=== PATIENT | male | born 1970 | race Caucasian/White ===

== ENCOUNTER 2017-03-14 11:18 | Emergency (ER) | payer OTHER ==
[2015-01-16 08:23] VITALS: BMI 27.2
[~2017-03-14 11:18] MED LIST: HYDROCODONE-APA1 TAB PO
[2017-03-14 11:47] LABS: BASOPHILS 0.2 % (0-2); EOSINOPHILS 1.1 % (0-7); HEMATOCRIT 38.8 % (42.0-54.0); HEMOGLOBIN 13.6 g/dL (13.5-17.5); IMMATURE GRANULOCYTES 0.2 % (0-5); LYMPHOCYTES 16.8 % (15-50); MCHC 35.1 g/dL (31.0-37.0); MCV 91.3 fL (80.0-100.0); MEAN PLATELET VOLUME 9.8 fL (7.4-10.4); MONOCYTES 8.6 % (2-11); NEUTROPHILS 73.1 % (40-80); PLATELET COUNT 205 10x3/uL (130-400); RBC 4.25 10x6/uL (4.20-6.10); RDW 12.9 % (11.5-14.5); WBC 8.9 10x3/uL (4.8-10.8)
[2017-03-14 12:02] LABS: ALBUMIN 3.3 g/dL (3.4-5.0); ANION GAP 17.8 mmol/L (8-16); BILIRUBIN - TOTAL 0.56 mg/dL (0.2-1.3); CALCIUM 8.4 mg/dL (8.5-10.1); CARBON DIOXIDE 22.3 mmol/L (21.0-32.0); CREATININE - SERUM 6.8 mg/dL (0.6-1.3); POTASSIUM - SERUM 4.1 mmol/L (3.5-5.1); PROTEIN - SERUM 6.6 g/dL (6.4-8.2)
[2017-03-14 12:03] LABS: APPEARANCE CLEAR (CLEAR); COLOR YELLOW (YELLOW); SPECIFIC GRAVITY 1.015 (1.005-1.020)
[2017-03-14 12:04] LABS: BACTERIA FEW /hpf (NONE SEEN); BILIRUBIN NEGATIVE (NEGATIVE); EPITHELIAL CELLS 0-5 /hpf (0-5); GLUCOSE NEGATIVE (NEGATIVE); KETONE NEGATIVE (NEGATIVE); LEUKOCYTE ESTERASE NEGATIVE (NEGATIVE); NITRITE NEGATIVE (NEGATIVE); PROTEIN NEGATIVE (NEGATIVE); RED CELLS - URINE 0-5 /hpf (0-5); UROBILINOGEN NORMAL (NORMAL); WHITE CELLS - URINE RARE /hpf (0-5)
== END 2017-03-14 14:48 | disposition home or self-care (01) ==
LOC: D.ER 11:18
PROVIDERS: Emergency Medicine
DX: M54.5 Low back pain (principal); K76.9 Liver disease, unspecified; N18.6 End stage renal disease; F17.200 Nicotine dependence, unspecified, uncomplicated

== ENCOUNTER 2017-03-15 16:56 | Inpatient (IN) | payer OTHER ==
[~2017-03-15] VITALS: Ht 182.9 cm; Wt 89.1 kg
--- NOTE | 2017-03-15 17:20 | NUR ---
PATIENT ARRIVED TO UNIT VIA WHEELCHAIR FROM ADMISSIONS AT 1710. PATIENT ADMITTED TO ROOM 2130. PATIENT ALERT/ORIENTED. ACCOMPANIED BY HIS MOTHER. NO IV ACCESS. DIRECT ADMIT FROM 'S OFFICE. RESP EVEN AND UNLABORED. URINAL PROVIDED. CALL LIGHT WITHIN REACH. NO DISTRESS.
--- NOTE | 2017-03-15 17:40 | NUR ---
URINE SAMPLE SUBMITTED TO LAB.
[2017-03-15 18:04] VITALS: BP 133/76; BMI 28.0
[2017-03-15 18:38] LABS: ALBUMIN 3.1 g/dL (3.4-5.0); ALKALINE PHOSPHATASE 60 U/L (46-116); ALT (SGPT) 29 U/L (10-68); BILIRUBIN - TOTAL 0.36 mg/dL (0.2-1.3); CALC OSMOLALITY 298 mosm/kg (275-300); CALCIUM 7.9 mg/dL (8.5-10.1); CARBON DIOXIDE 24.7 mmol/L (21.0-32.0); CHLORIDE - SERUM 105 mmol/L (98-107); GLUCOSE 109 mg/dL (74-106); POTASSIUM - SERUM 4.5 mmol/L (3.5-5.1); SODIUM 140 mmol/L (136-145); UREA NITROGEN 66 mg/dL (7-18); eGFR NON AFRICAN AMERICAN 9 mL/min (90-120)
--- NOTE | 2017-03-15 18:38 | NUR ---
22 GAUGE IV PLACED TO LEFT HAND X 1 STICK. GOOD BLOOD RETURN, EASY FLUSH. TAPED, DATED, AND SECURED. TOLERATED IV PLACEMENT WELL. NO DISTRESS.
[2017-03-15 18:57] LABS: CREATINE KINASE 517 UL (21-232); URIC ACID 10.1 mg/dL (2.6-7.2)
[2017-03-15 18:58] LABS: CKMB 1.1 U/L (0.0-3.6)
--- NOTE | 2017-03-15 20:00 | NUR ---
PT RESTING IN BED WITH NO DISTRESS. SALINE LOCK TO LEFT HAND, NONLABORED RESPIRATIONS ON ROOM AIR. PT WITH FLAT AFFECT, MINIMAL INTERACTION. SEE ASSESSMENT, MONITOR AND CPOC.
[2017-03-15 21:02] VITALS: BP 122/73
--- NOTE | 2017-03-15 22:30 | NUR ---
HS MEDS GIVEN. CLARIFIED WITH PHARMACY THE NEED FOR ORDERED IVF PER DR DUNN. IVF HAVE NOW BEEN DELIVERED TO FLOOR AND INFUSION OF D5.45NS +2AMPS BICARB AT 125ML/HR NOW INFUSING. ENCOURAGED PT TO VERBALIZE ANY NEEDS AND TALK ABOUT HIS FEELINGS. WILL MONITOR AND BE SUPPORTIVE.
[2017-03-16 04:21] VITALS: BP 119/68
--- NOTE | 2017-03-16 04:37 | NUR ---
PT AWAKE. C/O SLIGHT HEADACHE. TYLENOL PROVIDED. PT ALSO WANTING SOMETHING TO DRINK. FLUIDS PROVIDED. SR PER TELEMETRY. CALL LIGHT IN REACH. CPOC.
[2017-03-16 06:51] LABS: BASOPHILS 0.3 % (0-2); EOSINOPHILS 2.8 % (0-7); HEMATOCRIT 34.9 % (42.0-54.0); HEMOGLOBIN 12.3 g/dL (13.5-17.5); IMMATURE GRANULOCYTES 0.1 % (0-5); LYMPHOCYTES 22.3 % (15-50); MCH 32.4 pg (26.0-34.0); MCHC 35.2 g/dL (31.0-37.0); MCV 91.8 fL (80.0-100.0); MONOCYTES 6.1 % (2-11); NEUTROPHILS 68.4 % (40-80); PLATELET COUNT 224 10x3/uL (130-400); RDW 12.9 % (11.5-14.5); WBC 6.7 10x3/uL (4.8-10.8)
[2017-03-16 07:32] LABS: ALBUMIN 2.8 g/dL (3.4-5.0); ALKALINE PHOSPHATASE 50 U/L (46-116); ALT (SGPT) 23 U/L (10-68); CALC OSMOLALITY 301 mosm/kg (275-300); CALCIUM 7.8 mg/dL (8.5-10.1); CARBON DIOXIDE 23.7 mmol/L (21.0-32.0); CHLORIDE - SERUM 107 mmol/L (98-107); CREATINE KINASE 420 UL (21-232); CREATININE - SERUM 6.6 mg/dL (0.6-1.3); GLUCOSE 116 mg/dL (74-106); POTASSIUM - SERUM 4.6 mmol/L (3.5-5.1); PROTEIN - SERUM 5.8 g/dL (6.4-8.2); SODIUM 141 mmol/L (136-145); UREA NITROGEN 68 mg/dL (7-18); eGFR NON AFRICAN AMERICAN 10 mL/min (90-120)
[2017-03-16 07:37] LABS: CKMB 0.6 U/L (0.0-3.6)
[2017-03-16 08:00] VITALS: BP 110/80
--- NOTE | 2017-03-16 08:15 | NUR ---
PT RESTING IN BED WITH EYES OPEN CALL LIGHT IN REACH NO PROBLEMS WILL MONITER
--- NOTE | 2017-03-16 08:23 | NUR ---
RESTS IN BED WITH CALL LIGHT IN REACH. NAEEM NEEDS AT THIS TIME. DAVID ANDERSON.
[2017-03-16 12:43] VITALS: BP 111/73
[2017-03-16 14:05] VITALS: Ht 182.9 cm; Wt 89.1 kg
[2017-03-16 16:00] VITALS: BP 131/45
--- NOTE | 2017-03-16 19:47 | NUR ---
PT LYING IN BED WITH TV ON, JUST GOT BACK FROM WALK AROUND UNIT, REQUESTED LARGE CUP OF CRANBERRY JUICE, NO SIGNS OF DISTRESS, HAD VISITOR COME IN TO VISIT. LEFT PT IN BED AT LOW POSITION AND CALL LIGHT IN REACH
[2017-03-16 20:00] VITALS: BP 125/74
--- NOTE | 2017-03-16 23:08 | NUR ---
PT WALKING AROUND IN UNIT AND RETURNED TO ROOM, RECONNECTED PT TO IV. BED IN LOW POSITION CALL LIGHT IN REACH
[2017-03-17 04:20] VITALS: BP 118/73
[2017-03-17 06:04] LABS: BASOPHILS 0.5 % (0-2); EOSINOPHILS 2.9 % (0-7); HEMATOCRIT 35.5 % (42.0-54.0); HEMOGLOBIN 12.4 g/dL (13.5-17.5); IMMATURE GRANULOCYTES 0.2 % (0-5); LYMPHOCYTES 27.3 % (15-50); MCH 32.1 pg (26.0-34.0); MCHC 34.9 g/dL (31.0-37.0); MEAN PLATELET VOLUME 9.7 fL (7.4-10.4); MONOCYTES 7.3 % (2-11); NEUTROPHILS 61.8 % (40-80); PLATELET COUNT 231 10x3/uL (130-400); RBC 3.86 10x6/uL (4.20-6.10); RDW 12.8 % (11.5-14.5); WBC 6.6 10x3/uL (4.8-10.8)
[2017-03-17 06:55] LABS: CALC OSMOLALITY 300 mosm/kg (275-300); CALCIUM 8.1 mg/dL (8.5-10.1); CARBON DIOXIDE 25.8 mmol/L (21.0-32.0); CHLORIDE - SERUM 107 mmol/L (98-107); CREATININE - SERUM 5.4 mg/dL (0.6-1.3); GLUCOSE 102 mg/dL (74-106); MAGNESIUM - SERUM 2.7 mg/dL (1.8-2.4); PHOSPHOROUS 5.6 mg/dL (2.5-4.9); POTASSIUM - SERUM 4.7 mmol/L (3.5-5.1); SODIUM 143 mmol/L (136-145); UREA NITROGEN 58 mg/dL (7-18); eGFR NON AFRICAN AMERICAN 12 mL/min (90-120)
[2017-03-17 07:03] LABS: CREATINE KINASE 287 UL (21-232)
[2017-03-17 07:04] LABS: CKMB 0.7 U/L (0.0-3.6)
[2017-03-17 08:00] VITALS: BP 133/80
--- NOTE | 2017-03-17 09:32 | NUR ---
ADMINISTERED MORNING MEDS AT THIS TIME. PT DENIES ANY NEEDS AT THIS TIME. CALL LIGHT AT REACH, NAD NOTED, WILL CONTINUE TO MONITOR.
--- NOTE | 2017-03-17 11:20 | NUR ---
PT FIXING TO GET IN SHOWER. IV COVERED WITH GLOVE. PT DENIES ANY NEEDS AT THIS TIME. WILL CONTINUE TO MONITOR.
[2017-03-17 15:38] VITALS: BP 120/74
[2017-03-17 19:00] VITALS: BP 107/80
--- NOTE | 2017-03-17 23:56 | NUR ---
SLEEPING NO DISTRESS NOTED.
[2017-03-18] VITALS: BP 112/57
--- NOTE | 2017-03-18 | NUR ---
SLEEPING NO DISTRESS NOTED.
--- NOTE | 2017-03-18 02:00 | NUR ---
SLEEPING NO DISTRESS NOTED. SR UP X 2.
[2017-03-18 04:00] VITALS: BP 129/78
--- NOTE | 2017-03-18 04:30 | NUR ---
SLEEPING NO DISTRESS NOTED. SR UP X 2.
[2017-03-18 05:44] LABS: % SATURATION 28 % (15-55); IRON 76 ug/dl (35-150); TOTAL IRON BIND CAPACITY 268 ug/dl (260-445); UNSAT IRON BIND CAPACITY 192 ug/dl (150-375)
[2017-03-18 05:48] LABS: ANION GAP 15.4 mmol/L (8-16); CALCIUM 8.5 mg/dL (8.5-10.1); CARBON DIOXIDE 24.1 mmol/L (21.0-32.0); CREATININE - SERUM 3.8 mg/dL (0.6-1.3); POTASSIUM - SERUM 4.5 mmol/L (3.5-5.1)
--- NOTE | 2017-03-18 07:30 | NUR ---
ASSESSMENT DONE. DENIES NEEDS.
[2017-03-18 08:01] VITALS: BP 110/72
--- NOTE | 2017-03-18 09:36 | NUR ---
RESTS WITH EYES CLOSED. IV PATENT. CALL LIGHT IN REACH. WILL CONT. PLAN OF CARE.
--- NOTE | 2017-03-18 13:00 | NUR ---
Nutrition follow-up: Diet: Renal PO intake ~75% average of last 6 meals Labs reviewed Wt: 200# +BM RDN following.
[2017-03-18 16:07] VITALS: BP 124/76
--- NOTE | 2017-03-18 17:31 | NUR ---
WITHOUT CHANGES OR DISTRESS NOTED AT THIS TIME. DENIES NEEDS.
[2017-03-18 19:00] VITALS: BP 111/67
--- NOTE | 2017-03-18 19:30 | NUR ---
RECEIVED REPORT, WILL ASSUME CARE OF PT, PT IS UP AB BRANDON, WALKING, WILL CONTINUE PLAN OF CARE
--- NOTE | 2017-03-19 03:50 | NUR ---
ASSESSMENT COMPLETE, SEE FLOWSHEET, PT SLEEPING, BED IS LOW, SRX2, CALL LIGHT IN REACH, WILL CONTINUE PLAN OF CARE
[2017-03-19 04:00] VITALS: BP 114/79
[2017-03-19 05:47] LABS: BASOPHILS 0.3 % (0-2); EOSINOPHILS 3.1 % (0-7); HEMATOCRIT 41.9 % (42.0-54.0); HEMOGLOBIN 14.4 g/dL (13.5-17.5); IMMATURE GRANULOCYTES 0.1 % (0-5); LYMPHOCYTES 24.8 % (15-50); MCH 31.9 pg (26.0-34.0); MCHC 34.4 g/dL (31.0-37.0); MCV 92.9 fL (80.0-100.0); MEAN PLATELET VOLUME 9.5 fL (7.4-10.4); MONOCYTES 7.5 % (2-11); NEUTROPHILS 64.2 % (40-80); PLATELET COUNT 254 10x3/uL (130-400); RBC 4.51 10x6/uL (4.20-6.10); RDW 12.9 % (11.5-14.5); WBC 7.2 10x3/uL (4.8-10.8)
[2017-03-19 06:03] LABS: ANION GAP 14.9 mmol/L (8-16); CALCIUM 8.6 mg/dL (8.5-10.1); CARBON DIOXIDE 26.6 mmol/L (21.0-32.0); PHOSPHOROUS 5.1 mg/dL (2.5-4.9); POTASSIUM - SERUM 4.5 mmol/L (3.5-5.1)
[2017-03-19 06:04] LABS: CREATININE - SERUM 2.6 mg/dL (0.6-1.3)
--- NOTE | 2017-03-19 07:38 | NUR ---
PT STANDING BRUSHING TEETH IN MIRROR REPLACED TELEMETRY REQUESTED BY WAYNE DAIRY HAND DENIES ANY NEEDS AT THIS TIME WILL CONTINUE TO MONITOR
[2017-03-19 08:00] VITALS: BP 119/68
[2017-03-19 10:12] LABS: FOLATE (FOLIC ACID) - SERUM 9.9 ng/mL (>3.0)
--- NOTE | 2017-03-19 10:39 | NUR ---
PATIENT IS IN RESTROOM AT THIS TIME. DENIES ANY NEEDS THROUGH THE DOOR.
[2017-03-19 11:53] VITALS: BP 130/69
--- NOTE | 2017-03-19 15:14 | NUR ---
PT RECIEVED DISCHARGE INSTRUCTIONS. IV REMOVED WITH CATHETER TIP INTACT. PT LEFT FLOOR AT THIS TIME ESCORTED BY A FAMILY MEMBER AND MYSELF.
== END 2017-03-19 15:16 | disposition home or self-care (01) | DRG 683 ==
LOC: D.M2 16:56
PROVIDERS: ADMIT Internal Medicine Nephrology
DX: N17.9 Acute kidney failure, unspecified (principal); M62.82 Rhabdomyolysis; E87.2 Acidosis; E86.0 Dehydration; Z87.891 Personal history of nicotine dependence

== ENCOUNTER 2019-06-23 13:09 | Emergency (ER) | payer OTHER ==
[~2019-06-23] VITALS: Ht 182.9 cm; Wt 86.4 kg
[2019-06-23 13:15] VITALS: Ht 182.9 cm; Wt 86.4 kg
[2019-06-23] MEDS ORDERED: CYCLOBENZAPRINE10 MG PO (15:24)
[2019-06-23] MEDS ORDERED: IBUPROFEN800 MG PO (15:24)
[2019-06-23] MEDS ORDERED: ACETAMINOPHEN500 M1 PO (15:24)
[2019-06-23 15:57] VITALS: BP 124/60
== END 2019-06-23 16:35 | disposition home or self-care (01) ==
LOC: D.ER 13:09
DX: S06.0X9A Concussion with loss of consciousness of unspecified duration, initial encounter (principal); W20.8XXA Other cause of strike by thrown, projected or falling object, initial encounter; S10.93XA Contusion of unspecified part of neck, initial encounter; S60.229A Contusion of unspecified hand, initial encounter